=== PATIENT | female | born 1930 | race Caucasian/White ===

== ENCOUNTER 2017-06-02 16:08 | Emergency (ER) | payer OTHER ==
[~2017-06-02] VITALS: Ht 157.5 cm; Wt 76.7 kg
[~2017-06-02 16:08] MED LIST: Lovenox SC; Milk Of Magnesia,MOM PO; NO HOME MEDS; Percocet 5/325,Endoc PO; Senokot S,Pericolace PO; Theragran PO; Tums,OsCal PO; Vitamin D, Drisdol PO
[2017-06-02 16:47] LABS: HEMATOCRIT 41.7 % (36.0-46.0); HEMOGLOBIN 13.9 G/DL (11.9-15.5); MCH 30.4 PG (29.0-34.0); MCHC 33.3 G/DL (30.0-36.0); MCV 91.2 FL (83-99); PLATELET COUNT 296 K/uL (156-360); RBC DIS.WIDTH-CV 12.6 % (11.8-14.6); RBC DIS.WIDTH-SD 41.9 % (39-53); RED BLOOD COUNT 4.57 M/uL (3.80-5.20)
[2017-06-02 16:57] LABS: CHLORIDE 105 mEq/L (99-109); POTASSIUM 4.3 mEq/L (3.7-5.4); SODIUM 138 mEq/L (136-147)
[2017-06-02 16:59] LABS: GLUCOSE 119 mg/dL (70-99)
[2017-06-02 17:03] LABS: CREATININE 1.1 mg/dL (0.6-1.3); GFR ESTIMATE (CALCULATED) 50 mL/min/; UREA NITROGEN (BUN) 17 mg/dL (9-23)
[2017-06-02] MEDS ORDERED: VENTOLIN HFA18 GM IH (18:25)
[2017-06-02 18:49] VITALS: BP 143/70
== END 2017-06-02 18:54 | disposition home or self-care (01) ==
LOC: EME 16:08
DX: J40 Bronchitis, not specified as acute or chronic (principal); F17.200 Nicotine dependence, unspecified, uncomplicated
CPT/HCPCS: 71046; 80048; 85027; 93005; 99281; 99285

== ENCOUNTER 2017-12-29 21:56 | Observation (INO) | payer OTHER ==
[~2017-12-29] VITALS: Ht 165.1 cm; Wt 77.0 kg
[~2017-12-29 21:56] MED LIST changes: +VENTOLIN HFA18 GM IH
[2017-12-29 23:07] LABS: HEMATOCRIT 39.6 % (36.0-46.0); HEMOGLOBIN 12.9 G/DL (11.9-15.5); MCHC 32.6 G/DL (30.0-36.0); MCV 95.2 FL (83-99); PLATELET COUNT 182 K/uL (156-360); RBC DIS.WIDTH-CV 13.2 % (11.8-14.6); RBC DIS.WIDTH-SD 46.6 % (39-53); RED BLOOD COUNT 4.16 M/uL (3.80-5.20); WHITE BLOOD COUNT 10.8 K/uL (4.1-10.2)
[2017-12-29 23:15] LABS: ALBUMIN 3.4 g/dL (3.2-4.8)
[2017-12-29 23:16] LABS: CHLORIDE 103 mEq/L (99-109); POTASSIUM 4.2 mEq/L (3.7-5.4); SODIUM 139 mEq/L (136-147)
[2017-12-29 23:18] LABS: GLUCOSE 101 mg/dL (70-99); TOTAL PROTEIN 6.2 g/dL (6.4-8.3)
[2017-12-29 23:20] LABS: TOTAL BILIRUBIN 0.4 mg/dL (0.0-1.0)
[2017-12-29 23:21] LABS: ALKALINE PHOSPHATASE 82 IU/L (3-129)
[2017-12-29 23:22] LABS: CREATININE 1.5 mg/dL (0.6-1.3); GFR ESTIMATE (CALCULATED) 35 mL/min/
[2017-12-29 23:23] LABS: AST (GOT) 14 IU/L (2-34); UREA NITROGEN (BUN) 25 mg/dL (9-23)
[2017-12-29 23:25] LABS: ALT (GPT) 13 IU/L (3-49)
[2017-12-30] MEDS ORDERED: CELEXA10 MG PO (01:07)
[2017-12-30] MEDS ORDERED: MYRBETRIQ25 MG PO (01:07)
[2017-12-30] MEDS ORDERED: NAMENDA XR28 MG PO (01:07)
[2017-12-30] MEDS ORDERED: AMBIEN5 MG PO (01:07)
[2017-12-30 02:22] VITALS: BP 157/74
[2017-12-30 03:22] LABS: HDL CHOLESTEROL 51 MG/DL (Desirable>=50); LDL CHOLESTEROL 91 mg/dL (Desirable<100); NON-HDL CHOLESTEROL 116 mg/dL (Desirable<160); TOTAL CHOLESTEROL 167 mg/dL (Desirable<200); TRIGLYCERIDES 125 MG/DL (Normal: <150)
[2017-12-30 08:14] VITALS: BP 128/64
[2017-12-30 09:25] LABS: HEMOGLOBIN A1c (GLYCOHEMOGLOB) 5.6 % (Below 5.7)
[2017-12-30 11:29] VITALS: BP 130/61
[2017-12-30 15:18] VITALS: BP 128/68
[2017-12-30 19:45] VITALS: BP 130/60
[2017-12-30 23:45] VITALS: BP 113/58
[2017-12-31 03:44] VITALS: BP 135/66
[2017-12-31 05:40] LABS: BASOPHIL (%) 0.4 % (0-1); EOSINOPHIL (%) 2.7 % (0-5); EOSINOPHIL COUNT 0.2 K/uL (0-0.3); HEMATOCRIT 36.2 % (36.0-46.0); HEMOGLOBIN 11.8 G/DL (11.9-15.5); IMMATURE GRANULOCYTE (%) 0.4 % (0.0-0.7); LYMPHOCYTE (%) 28.1 % (15-42); LYMPHOCYTE COUNT 2.1 K/uL (1.0-2.8); MCH 30.8 PG (29.0-34.0); MCHC 32.6 G/DL (30.0-36.0); MCV 94.5 FL (83-99); MONOCYTE (%) 7.3 % (3-12); MONOCYTE COUNT 0.6 K/uL (0-0.8); NEUTROPHIL (%) 61.1 % (45-76); NEUTROPHIL COUNT 4.6 K/uL (1.8-6.4); PLATELET COUNT 169 K/uL (156-360); RBC DIS.WIDTH-CV 13.3 % (11.8-14.6); RED BLOOD COUNT 3.83 M/uL (3.80-5.20); WHITE BLOOD COUNT 7.5 K/uL (4.1-10.2)
[2017-12-31 06:25] LABS: CHLORIDE 104 MEQ/L (99-109); GFR ESTIMATE (CALCULATED) 56 mL/min/; GLUCOSE 100 mg/dL (70-99); POTASSIUM 4.2 MEQ/L (3.7-5.4); SODIUM 138 MEQ/L (136-147); UREA NITROGEN (BUN) 25 mg/dL (9-23)
[2017-12-31 08:06] VITALS: BP 138/73
[2017-12-31 12:01] VITALS: BP 110/61
[2017-12-31] MEDS ORDERED: ASPIR-LOW81 MG PO (14:00)
[2017-12-31] MEDS ORDERED: LIPITOR40 MG PO (14:01)
== END 2017-12-31 15:44 | disposition home or self-care (01) ==
LOC: EME → EDBD 21:56 → EME 21:56 → EDOF 12-30 01:36 → 4SOUTH 12-30 02:10
PROVIDERS: Emergency Medicine; Hospitalist
DX: G45.9 Transient cerebral ischemic attack, unspecified (principal); R47.81 Slurred speech; I10 Essential (primary) hypertension; E78.5 Hyperlipidemia, unspecified; F03.90 Unspecified dementia, unspecified severity, without behavioral disturbance, psychotic disturbance, mood disturbance, and anxiety; J40 Bronchitis, not specified as acute or chronic
CPT/HCPCS: 70450; 70551; 71046; 80048; 80053; 80061; 83036; 85025; 85027; 93005; 93880; 99281; 99285; G0378; G8978 GP CJ; G8979 GP CH; G8980 CJ; J7030